=== PATIENT | male | born 1950 | race Caucasian/White ===

== ENCOUNTER → 2022-01-10 14:23 | Outpatient (BNVA) | payer MEDICARE, MEDICAID, SELFPAY | PROVIDERS: PCP Hospitalist; Visit Provider Nurse Practitioner Family | DX: G20 Parkinson's disease (principal); K59.00 Constipation, unspecified | CPT/HCPCS: 99212 ==

== ENCOUNTER 2023-12-14 10:11 | Outpatient (AMB) | payer MEDICARE, SELFPAY ==
--- NOTE | 2023-12-14 10:23 | A.OFFVIS_ITS ---
Intake Visit Reasons: Follow up-Confirmed Intake Note: Pt presents for follow up for Parkinson's. Order Builder Required: No Allergies acetaminophen [From Midol] Adverse Reaction (Mild, Verified 12/14/23 10:23) Anaphylaxis pamabrom [From Midol] Adverse Reaction (Mild, Verified 12/14/23 10:23) Anaphylaxis Medication List - Last Reconciled 12/14/23 by Dilcia Velazquez MD carbidopa-levodopa 25-100 mg 2 tabs PO QID 90 days carbidopa-levodopa 25-100 mg ER 2 tabs PO BEDTIME 90 days docusate sodium (Colace) 100 mg PO BID fluticasone furoate 50 mcg/actuation inhalation loratadine 10 mg PO DAILY ropinirole 1 mg PO TID 90 days sennosides (senna) 17.2 mg PO DAILY PRN HPI Comments Details: 73-yr-old male presents for f/u visit. He came in a stretcher via ambulance today. The [employer] that accompanied him did not have much information. They reported that he can stand and pivot with assistance and his tremor shave increased. He was seen here 2 years ago He needs assistance with feeding ,dressing , showers . Over time, his Parkinson's symptoms have progressed. Pt's current PD medication regimen: CD/LD 2 tabs qid and CD/LD ER 25-100mg qhs, Requip 1mg tid Do medication effects last between doses: Yes He reports drooling Stiffness: Not feeling as stiff Tremor: Increased Falls: No recent falls. mostly in wheelchair. Not sure if he ambulate sin the care home Hallucinations: No Memory: Pretty good for his age . LTM is better than STM. Sleep: Not sleeping much- about 2 hours per night. May doze off if inactive. [facility] Medical History (Updated 12/14/23 @ 10:45 by Dilcia Velazquez MD) Cognitive change Parkinson's disease with fluctuating manifestations Asthma HTN (hypertension) Heart failure Venous insufficiency Social History Alcohol intake: never Patient Tobacco Use Status: Never used Tobacco Physical Exam Const General: cooperative and no acute distress Resp Effort & Inspection: normal respiratory effort and able to speak in complete sentences Neuro Other: Expression: Decreased expression and blink Voice: hypophonia Tremor: chin tremors Tone: BUE rigidity Dyskinesia: None FFM: Bradykinesia Foot taps: Bradykinesia Gait: Pt is in a stretcher speech- mumbles Psych: Pleasant affect Psych Appearance: well kempt Mental Status: mental status grossly normal Attitude: cooperative Assessment & Plan Assessment & Plan (1) Parkinson's disease with fluctuating manifestations: Code(s): G20.A2 - Parkinson's disease without dyskinesia, with fluctuations Category: Medical (2) Cognitive change: Code(s): R41.89 - Other symptoms and signs involving cognitive functions and awareness Category: Medical Plan Increase carbidopa/levodopa 25/100 2 tabs 5 times a day Carbidopa/levodopa ER 25/100 2 tabs qhs Ropiniorle 1mg tid Physical Therapy F/u 6 mths - please send patient with his walker and wheelchair Monitor for hallucinations and orthostatic hypotension Coding Level of Care Code Est Pt Level 4 (67731) Complex EM visit Add On G2211 Diagnoses Parkinson's disease with fluctuating manifestations G20.A2 Cognitive change R41.89
== END 2023-12-14 10:53 | disposition home or self-care (01) ==
PROVIDERS: PCP Hospitalist; Visit Provider Psychiatry & Neurology Neurology
DX: G20.A2 Parkinson's disease without dyskinesia, with fluctuations (principal); R41.89 Other symptoms and signs involving cognitive functions and awareness
CPT/HCPCS: 99214; G2211

== ENCOUNTER → 2023-12-14 10:11 | Outpatient (BNVA) | payer MEDICARE, SELFPAY | PROVIDERS: PCP Hospitalist; Visit Provider Psychiatry & Neurology Neurology | DX: G20.A2 Parkinson's disease without dyskinesia, with fluctuations (principal); R41.89 Other symptoms and signs involving cognitive functions and awareness | CPT/HCPCS: 99212 ==